=== PATIENT | male | born 1940 | race Caucasian/White ===

== ENCOUNTER → 2018-01-23 | Outpatient (CLI) | payer MEDICARE, OTHER ==
[~2018-01-23] MED LIST: ANTIDEPRESSANT PO; ASPI-496 PO; BLOO-579 HOMEMISC; CLOB15CR19 TP; ERGO500047 PO; GLIP10TA13 PO; GLIP5TAB10 PO; METF10002 PO; METF500T4 PO; METO-95 PO; METO50TA82 PO; OMNIPAQUE 350 MG/ML, 150 ML BOTTLE ONE; VILA40TA PO
== END | disposition home or self-care (01) ==
LOC: CFH 11:23
PROVIDERS: ATTEND Urology
DX: N20.0 Calculus of kidney (principal); N28.1 Cyst of kidney, acquired; R91.1 Solitary pulmonary nodule; Z85.51 Personal history of malignant neoplasm of bladder
CPT/HCPCS: 74178; Q9967